=== PATIENT | female | born 1955 | race Caucasian/White ===

== ENCOUNTER 2016-06-13 06:54 | Day surgery (SDC) | payer MEDICARE, SELFPAY ==
[~2016-06-13 06:54] MED LIST: ASPIRIN EC81 MG PO; CALCIUM 600 +1 EA12 PO; CEPHALEXIN500 MG PO; COREG25 M1 PO; IBUPROFEN200 M2 PO; INDOMETHACIN25 MG PO; LISINOPRIL-HCT1 EAC3 PO; MUCINEX DM ER1 EACH PO; MYRBETRIQ50 M1 PO; NAPROXEN SODIU220 M2 PO; OXYBUTYNIN CHLOR5 M2 PO; PAXIL20 MG PO; TESSALON PERLE100 MG PO; TYLENOL EXTRA500 M1 PO; VENLAFAXINE H37.5 M3 PO; WOMEN'S DAILY1 EAC4 PO; ZYLOPRIM300 M1 PO
--- NOTE | 2016-06-13 18:11 | NUR ---
1245-pharmacy called to consult on scheduled toradol for pt with stage 3 chronic kidney disease. Pharmacist recommends not giving dose as scheduled, recommends dose be prn or q12h. -1250 Dr. Wells called to notify on pharmacists suggestions due to pt's renal history. Dr. Wells ask to keep toradol scheduled, order given for range dose 15-30mg q6h.
[2016-06-14] MEDS ORDERED: IBUPROFEN800 M1 PO (00:32)
[2016-06-14] MEDS ORDERED: IBUPROFEN400 M1 PO (09:21)
[2016-06-14] MEDS ORDERED: COLACE100 M1 PO (09:22)
[2016-06-14] MEDS ORDERED: NORCO 5-325 TA1 EACH PO (09:23)
== END 2016-06-14 10:35 ==
LOC: WSU 06:54 → SHSB 06:58 → ORW 09:03 → PACU 11:03 → OBGE 12:30
PROC: 0UT94ZZ Resection of Uterus, Percutaneous Endoscopic Approach (ICD-10-PCS; principal; 2016-06-13)
PROC: 0UTC4ZZ Resection of Cervix, Percutaneous Endoscopic Approach (ICD-10-PCS; 2016-06-13)
PROC: 0UT24ZZ Resection of Bilateral Ovaries, Percutaneous Endoscopic Approach (ICD-10-PCS; 2016-06-13)
PROC: 0UT74ZZ Resection of Bilateral Fallopian Tubes, Percutaneous Endoscopic Approach (ICD-10-PCS; 2016-06-13)
DX: D39.0 Neoplasm of uncertain behavior of uterus (principal); N80.0 Endometriosis of uterus; N85.01 Benign endometrial hyperplasia; I12.9 Hypertensive chronic kidney disease with stage 1 through stage 4 chronic kidney disease, or unspecified chronic kidney disease; N18.3 Chronic kidney disease, stage 3 (moderate); E66.01 Morbid (severe) obesity due to excess calories; F32.9 Major depressive disorder, single episode, unspecified; M10.9 Gout, unspecified; Z79.899 Other long term (current) drug therapy; Z98.890 Other specified postprocedural states; Z88.0 Allergy status to penicillin
CPT/HCPCS: J1580; J1885; J3010; J7030; J7121